=== PATIENT | female | born 1975 | race Caucasian/White ===

== ENCOUNTER 2017-11-07 09:30 | Emergency (ER) | payer OTHER ==
[2017-11-07] MEDS: DEXAMETHASONE 10 MG/ML 1 ML INJ IM (10:18)
[2017-11-07] MEDS: IPRATROPIUM (NEB) 0.5 MG/2.5 ML AMP HHN (10:22)
[2017-11-07] MEDS: ALBUTEROL 0.083% (NEB) 2.5 MG/3 ML AMP HHN (10:22)
== END 2017-11-07 11:00 | disposition home or self-care (01) ==
LOC: FTE 09:30
DX: J45.901 Unspecified asthma with (acute) exacerbation (principal); J32.9 Chronic sinusitis, unspecified; R05 Cough
CPT/HCPCS: 94664; 96372; 99284-25

== ENCOUNTER 2018-09-17 09:07 | Emergency (ER) | payer OTHER | END 2018-09-17 10:34 | disposition home or self-care (01) | LOC: FTE 10:34 | DX: R05 Cough (principal); J45.909 Unspecified asthma, uncomplicated | CPT/HCPCS: 99283 ==

== ENCOUNTER 2018-10-08 12:03 | Emergency (ER) | payer OTHER ==
[2018-10-08] MEDS: IPRATROPIUM (NEB) 0.5 MG/2.5 ML AMP HHN (12:48)
[2018-10-08] MEDS: ALBUTEROL 0.083% (NEB) 2.5 MG/3 ML AMP HHN (12:48)
[2018-10-08] MEDS: predniSONE 20 MG TAB PO (12:50)
== END 2018-10-08 14:25 | disposition home or self-care (01) ==
LOC: FTE 12:03
DX: J45.901 Unspecified asthma with (acute) exacerbation (principal)
CPT/HCPCS: 94644; 99283-25

== ENCOUNTER 2018-12-01 12:14 | Emergency (ER) | payer OTHER ==
[2018-12-01] MEDS: predniSONE 20 MG TAB PO (12:33)
[2018-12-01] MEDS: IPRATROPIUM (NEB) 0.5 MG/2.5 ML AMP NEB (12:40)
[2018-12-01] MEDS: ALBUTEROL 0.083% (NEB) 2.5 MG/3 ML AMP NEB (12:40)
== END 2018-12-01 14:10 | disposition home or self-care (01) ==
LOC: FTE 12:14
DX: J45.901 Unspecified asthma with (acute) exacerbation (principal); Z76.0 Encounter for issue of repeat prescription
CPT/HCPCS: 71045; 94664; 99283-25